=== PATIENT | male | born 1960 | race Caucasian/White ===

== ENCOUNTER 2022-11-07 05:38 | Day surgery (SDC) | payer OTHER ==
[2022-11-06 10:55] VITALS: BP 132/83
[2022-11-06 11:06] LABS: BASOPHILS % (AUTO) 0.8 % (0.0-5.0); EOSINOPHILS % (AUTO) 1.1 % (0.0-8.0); HEMATOCRIT 45.3 % (42-54); LYMPHOCYTES % (AUTO) 34.3 % (21.0-51.0); MEAN CORPUSCULAR HEMOGLOBIN 28.1 pg (27.0-33.0); MEAN CORPUSCULAR HGB CONC 33.8 g/dL (32.0-36.0); MEAN CORPUSCULAR VOLUME 83.3 fL (79-99); MONOCYTES % (AUTO) 9.4 % (3.0-13.0); NEUTROPHILS % (AUTO) 54.2 % (40.0-77.0); PLATELET COUNT (AUTO) 161 K/uL (130-400); RED BLOOD CELL COUNT(AUTO) 5.44 MIL/uL (4.50-6.20); RED CELL DISTRIBUTION WIDTH 13.3 % (11.0-15.5); WHITE BLOOD COUNT (AUTO) 5.3 K/uL (4.8-10.8)
[2022-11-06 11:35] LABS: ALBUMIN 3.9 g/dL (3.5-5.0); BILIRUBIN,DIRECT 0.3 mg/dL (0.0-0.3); TOTAL PROTEIN, SERUM 6.7 g/dL (6.0-8.3)
[2022-11-07] VITALS (20 sets, daily range): BP systolic 102–134; BP diastolic 73–95
[~2022-11-07] VITALS: Ht 186.7 cm; Wt 82.6 kg
[~2022-11-07 05:38] MED LIST: TRAM50TA4 PO
[2022-11-07] MEDS ORDERED: LIDOCAINE HCL 1% 20 ML VIAL ONE (05:49)
[2022-11-07] MEDS ORDERED: BUPIVACAINE/PF 0.5% 10ML VIAL ONE (05:49)
[2022-11-07] MEDS ORDERED: BUPIVACAINE/EPI/PF 0.25% 10ML VIAL IJ ONE ×2 (06:03→06:05)
[2022-11-07] MEDS ORDERED: CEFAZOLIN SODIUM 2 GM VIAL ONE (06:36)
[2022-11-07] MEDS ORDERED: LACTATED RINGERS 1000ML 1,000 ML IV ONE (06:36)
[2022-11-07] MEDS ORDERED: VANCOMYCIN 1G/250ML KIT 250 ML IV ONE (06:48)
[2022-11-07] MEDS ORDERED: 0.9% NACL 250ML 250 ML ONE (06:49)
[2022-11-07] MEDS ORDERED: FENTANYL CITRATE PF 50 MCG/1 ML 2ML VIAL ONE (07:47)
[2022-11-07] MEDS ORDERED: PROPOFOL 10 MG/ML 20ML VIAL IV ONE (07:47)
[2022-11-07] MEDS ORDERED: SUCCINYLCHOLINE CHLORIDE 20 MG/ML 10 ML VIAL ONE (07:47)
[2022-11-07] MEDS ORDERED: MIDAZOLAM HCL 1 MG/ML 2ML VIAL ONE (07:49)
[2022-11-07] MEDS ORDERED: ROCURONIUM 10MG/1ML SYR 10 MG/ML ML ONE (07:49)
[2022-11-07] MEDS ORDERED: GLYCOPYRROLATE 1 MG/5 ML SYRINGE ONE ×2 (08:43→09:58)
[2022-11-07] MEDS ORDERED: NEOSTIGMINE 5MG/5ML SYR IV ONE (08:43)
[2022-11-07] MEDS ORDERED: MEPERIDINE-PF 25 MG/ML SYG ONE (09:25)
== END 2022-11-07 10:53 | disposition home or self-care (01) ==
LOC: DAH 05:38
PROVIDERS: ATTEND Surgery
DX: K40.90 Unilateral inguinal hernia, without obstruction or gangrene, not specified as recurrent (principal); Z20.822 Contact with and (suspected) exposure to COVID-19; E66.9 Obesity, unspecified; Z98.890 Other specified postprocedural states; Z72.89 Other problems related to lifestyle; Z88.0 Allergy status to penicillin; Z68.23 Body mass index [BMI] 23.0-23.9, adult
CPT/HCPCS: 80076; 85025; 87426; 36415; 71045; 49505; A4663; J7120 ×2; A4452; A4344; J3010; J3490 ×4; J2710; J0330; J2250; J2704; J3370; J2175; J7050; A6254; A4215; A4223; A4222; A4221